=== PATIENT | female | born 1970 | race African-American/Black ===

== ENCOUNTER 2018-08-16 15:06 | Emergency (ER) | payer BC ==
[~2018-08-16] VITALS: Ht 167.6 cm; Wt 72.6 kg
[2018-08-16] MEDS ORDERED: TRAMADOL 50 MG50 MG PO (16:11)
[2018-08-16] MEDS ORDERED: NAPROSYN500 MG PO (16:11)
[2018-08-16 17:07] VITALS: BP 135/78
== END 2018-08-16 17:08 | disposition home or self-care (01) ==
LOC: ER 15:06
DX: S00.03XA Contusion of scalp, initial encounter (principal); S50.01XA Contusion of right elbow, initial encounter; Z88.0 Allergy status to penicillin; Z88.8 Allergy status to other drugs, medicaments and biological substances; W00.0XXA Fall on same level due to ice and snow, initial encounter; Y93.89 Activity, other specified; Y92.89 Other specified places as the place of occurrence of the external cause; Y99.8 Other external cause status